=== PATIENT | female | born 1990 | race African-American/Black ===

== ENCOUNTER 2019-04-24 09:59 | Emergency (ER) | payer MEDICAID, OTHER ==
[~2019-04-24] VITALS: Ht 162.6 cm; Wt 61.2 kg
[2019-04-24 12:37] LABS: Urine Bacteria NONE SEEN /hpf (None Seen); Urine Blood Negative /uL (Negative); Urine Specific Gravity 1.004 (1.001-1.035); Urine WBC 2 /hpf (0 - 5)
[2019-04-24 13:40] LABS: Basophils # (auto) 0 uL; Basophils % (auto) 0.4 % (0.0-2.0); Eosinophils # (auto) 0 uL; Lymphocytes # (auto) 1.9 uL; Monocytes # (auto) 0.4 uL; Nucleated Red Blood Cells % 0.1 %; White Blood Cell 5.8 10^3/uL (4.4-10.8)
[2019-04-24 13:41] LABS: Eosinophils % (auto) 0.6 % (0.0-7.0); Hematocrit 37.3 % (36.0-46.0); Hemoglobin 11.7 g/dL (12.2-16.2); Lymphocytes % (auto) 33.3 % (10.0-50.0); Mean Corpuscular Hemoglobin 22.2 pg (28.0-32.0); Mean Corpuscular Hgb Conc. 31.5 g/dL (32.0-36.0); Mean Corpuscular Volume 70.5 fL (80.0-100.0); Monocytes % (auto) 6.5 % (0.0-12.0); Neutrophils # (auto) 3.5 uL; Neutrophils % (auto) 59.2 % (37.0-80.0); Platelet Count (auto) 262 10^3/uL (140-450); Red Blood Cells 5.29 10^6/uL (4.0-5.20)
[2019-04-24 13:54] LABS: Albumin 3.8 g/dL (3.4-5.0); BUN/Creatinine Ratio 7.6; Calcium 8.7 mg/dL (8.5-10.1); Potassium 3.7 mmol/L (3.5-5.1)
[2019-04-24 13:55] VITALS: BP 107/71
[2019-04-24 13:57] LABS: Bilirubin, Total 0.2 mg/dL (0.2-1.0); Total Protein 7.7 g/dL (6.4-8.2)
== END 2019-04-24 14:47 | disposition home or self-care (01) ==
LOC: ER 10:03
DX: R42 Dizziness and giddiness (principal); Z88.0 Allergy status to penicillin
CPT/HCPCS: 36415; 70450; 80053; 81001; 81025; 85025; 93005; 94761

== ENCOUNTER 2019-11-14 09:12 | Emergency (ER) | payer MEDICAID ==
[~2019-11-14] VITALS: Ht 162.6 cm; Wt 65.8 kg
[2019-11-14 13:13] VITALS: BP 120/80
== END 2019-11-14 13:21 | disposition home or self-care (01) ==
LOC: ER 09:14
DX: J06.9 Acute upper respiratory infection, unspecified (principal); J40 Bronchitis, not specified as acute or chronic; J45.909 Unspecified asthma, uncomplicated
CPT/HCPCS: 71046; 81025; 93005